=== PATIENT | female | born 1955 | race African-American/Black ===

== ENCOUNTER 2018-08-17 03:08 | Emergency (ER) | payer OTHER ==
[~2018-08-17] VITALS: Ht 165.1 cm; Wt 68.0 kg
[2018-08-17 03:29] LABS: ABSOLUTE NEUTROPHILS 2.6 thou/uL (1.4-8.2); EOSINOPHILS 3.8 % (0.0-3.0); HEMOGLOBIN 12.9 gm/dL (12.0-15.0); LYMPHOCYTES 48.9 % (24.0-44.0); MCH 33.3 pg (26.0-34.0); MCHC 33.9 g/dL (28.0-37.0); MCV 98.2 fL (80.0-100.0); MONOCYTES 6.8 % (1.0-8.0); PLATELET COUNT 205 thou/uL (150-400); POLYS 39.5 % (36.0-66.0); RBC 3.87 mil/uL (4.20-5.00); RDW 12.8 % (10.5-14.5); WBC 6.6 thou/uL (4.0-11.0)
[2018-08-17 03:48] LABS: ANION GAP 9 mmol/L (7-16); BUN 18 mg/dL (7-18); CALCIUM 9.2 mg/dL (8.5-10.1); CHLORIDE 108 mmol/L (98-107); CO2 26 mmol/L (21-32); CREATININE 0.7 mg/dL (0.6-1.0); GLUCOSE 94 mg/dL (74-106); POTASSIUM 3.6 mmol/L (3.5-5.1); SODIUM 143 mmol/L (136-145)
[2018-08-17 03:55] LABS: ALBUMIN 3.6 g/dL (3.4-5.0); MAGNESIUM 1.8 mg/dL (1.8-2.4); SGOT 13 U/L (15-37); SGPT 17 U/L (30-65); TOTAL BILIRUBIN < 0.1 mg/dL (<0.1-1.0); TOTAL PROTEIN 6.7 g/dL (6.4-8.2); TROPONIN-I <0.06 ng/mL (<0.06)
[2018-08-17 03:56] LABS: URINE BILIRUBIN NEGATIVE (Negative); URINE BLOOD TRACE (Negative); URINE CLARITY CLEAR; URINE COLOR YELLOW; URINE GLUCOSE-RANDOM* NEGATIVE (Negative); URINE KETONES NEGATIVE (Negative); URINE LEUKOCYTES-REFLEX NEGATIVE (Negative); URINE NITRITE-REFLEX NEGATIVE (Negative); URINE PROTEIN (DIPSTICK) NEGATIVE (Negative); URINE SPECIFIC GRAVITY 1.025 (1.005-1.035); URINE UROBILINOGEN 0.2 E.U./dl (0.2-1.0)
[2018-08-17 04:04] LABS: AMP/METHAMP Negative (Negative); BARBITURATES Negative (Negative); BENZODIAZEPINES Negative (Negative); COCAINE Negative (Negative); METHADONE Negative (Negative); OPIATES POSITIVE (Negative); PCP Negative (Negative)
[2018-08-17 04:49] VITALS: BP 101/58
--- NOTE | 2018-08-17 08:49 | EKG ---
[facility] [place] [address] ELECTROCARDIOGRAM REPORT Name: DEEPAKJANNAROSY TAVERAS Room #: [facility]P [facility] [id number] ������������������ Admission: 08/17/18 ������������������ Attend Phys: Discharge: 08/17/18 ������������������ Date of : 59 Report #: [id number] ����������������������������������������������������������������� [id number] THIS REPORT FOR: //name// [facility] ED Test Date: 2018-08-17 Test Time: 03:16:33 Pat Name: JANNA SOTELO Department: Room: Gender: F Solid Plasterer: Giovani Smith : 1955 Requested By: Puma Mixon Order Number: [id number] MD: Harjeet Lora Measurements Intervals [place] Rate: 59 P: 6 RI: 151 QRS: 14 QRSD: 87 T: 55 QT: 424 QTc: 420 Interpretive Statements Sinus bradycardia Possible Anteroseptal infarct, age indeterminate No previous ECG available for comparison Electronically Signed On 08-17-2018 8:49:14 CDT by Harjeet Lora [email or web address] ��������������������������������������������� <ELECTRONICALLY SIGNED> ���������������������������������������� By: Harjeet Lora MD, [facility] ��������������������������������������������� 08/17/18 0849 0316 0316 Harjeet Lora MD, FACC /EPI
== END 2018-08-17 05:08 | disposition home or self-care (01) ==
LOC: ER 03:08
PROVIDERS: Emergency Medicine
DX: G56.32 Lesion of radial nerve, left upper limb (principal); M25.511 Pain in right shoulder; F10.129 Alcohol abuse with intoxication, unspecified; F11.90 Opioid use, unspecified, uncomplicated; F17.210 Nicotine dependence, cigarettes, uncomplicated; Z86.69 Personal history of other diseases of the nervous system and sense organs; Y90.0 Blood alcohol level of less than 20 mg/100 ml